=== PATIENT | male | born 1950 | race Caucasian/White ===

== ENCOUNTER 2016-05-22 17:21 | Emergency (ER) | payer OTHER ==
[2016-05-22 18:11] LABS: URINE APPEARANCE CLEAR; URINE BILIRUBIN NEGATIVE (NEGATIVE); URINE BLOOD 4+ (NEGATIVE); URINE COLOR YELLOW; URINE GLUCOSE (UA) NEGATIVE (NEGATIVE); URINE LEUKOCYTE ESTERASE NEGATIVE (NEGATIVE); URINE NITRITE NEGATIVE (NEGATIVE); URINE PROTEIN 1+ (NEGATIVE); URINE UROBILINOGEN NORMAL (0-1 mg/dl)
[2016-05-22 18:17] LABS: URINE BACTERIA 0; URINE EPITHELIAL CELLS FEW /hpf; URINE RBC 20-30 /hpf; URINE WBC 0-1 /hpf
[2016-05-22] MEDS ORDERED: HYDROMORPHONE HCL 1 MG/ML SYRINGE ONE (18:36)
[2016-05-22] MEDS ORDERED: KETOROLAC TROMETHAMINE 30 MG/ML 1 ML VIAL ONE (18:36)
[2016-05-22] MEDS ORDERED: ONDANSETRON 4 MG/2ML 2 ML VIAL ONE (18:36)
[2016-05-22 18:52] LABS: ABSOLUTE NEUTROPHIL COUNT 10.9 K/mm3 (1.8-7.7); BASO % 0.3 % (0.2-1.0); EOS % 0.2 % (0.9-2.9); HEMATOCRIT 47.4 % (32.0-52.0); IMM NEUT # 0.1 K/mm3 (0-0.2); IMM NEUT% 0.5 % (0-1); LYMPH % 7.5 % (15-45); MEAN CELL VOLUME 88.3 fl (80.0-94.0); MEAN CORPUSCULAR HEMOGLOBIN 29.8 pg (27.0-31.0); MEAN CORPUSCULAR HGB CONC 33.8 g/dl (33.0-37.0); MEAN PLATELET VOLUME 9.7 fl (7.4-10.4); MONO # 1.2 (0.0-0.8); MONO % 9.3 % (4-12); NEUT % 82.2 % (43-75); PLATELET COUNT 313 K/mm3 (130-400); RED CELL DISTRIBUTION WIDTH 13.1 % (11.5-14.5)
[2016-05-22 19:02] LABS: ALB/GLOB RATIO 1.3 (>1.0); CALCIUM 9.2 mg/dL (8.6-10.3)
--- NOTE | 2016-05-22 19:13 | CT ---
CT ABDOMEN AND PELVIS WITHOUT CONTRAST HISTORY: Left-sided flank pain. TECHNIQUE: No intravenous contrast administered; contiguous axial images were acquired from the lung bases to the ischial tuberosities. Oral contrast was not administered. COMPARISON:None. FINDINGS: LUNG BASES: Minor respiratory motion artifact. Minor atelectatic change without airspace consolidation or pleural effusion. LIVER: No focal mass effect. SPLEEN: No focal mass effect. STOMACH: Small to moderate hiatal hernia. PANCREAS: No focal mass effect. ADRENAL GLANDS: No mass effect. KIDNEYS: Nonobstructive calculi on the right up to 3 mm in size, up to 4 nonobstructive calculi in the left of the 4 mm in size. Asymmetric left-sided perirenal stranding and fluid with moderate collecting system and ureteral dilatation. A distal ureteral calculus on the left measures 2 mm in size right calculus along the left ureterovesicular junction, perhaps within the bladder lumen measures 3 mm in size. GALLBLADDER: Present. BOWEL: Moderate fecal loading. Limited assessment of the distal colon due to decompression. No abnormal small bowel dilatation. Findings of colonic diverticulosis without features of diverticulitis. APPENDIX: Normal gas-filled appendix. PELVIC ORGANS: No gross mass effect. INGUINAL REGIONS: Fatty inguinal hernia formation bilaterally. FREE FLUID: No gross free fluid identified. ABDOMINOPELVIC LYMPH NODES: No abnormally enlarged lymph nodes identified. ABDOMINAL AORTA: Minor atherosclerotic calcification without aneurysmal dilatation. OSSEOUS STRUCTURES: Dextroconvex curvature of the thoracolumbar junction with evidence of multilevel thoracolumbar disc degeneration, no grossly destructive lesions. IMPRESSION: 1. 3 mm calculus seen at the left ureterovesicular junction versus the bladder lumen. Additional 2 mm obstructive distal left ureteral calculus. Moderate residual bilateral renal calculus burden as above. 2. Hiatal hernia. 3. Fatty inguinal hernias bilaterally. 4. Colonic diverticulosis without diverticulitis. 5. Thoracolumbar spondylosis. Results were electronically transmitted to the electronic medical record at 05/22/2016 at 1909 hours.
== END 2016-05-22 17:37 | disposition home or self-care (01) ==
LOC: ED 17:21
DX: N20.9 Urinary calculus, unspecified (principal); I10 Essential (primary) hypertension
CPT/HCPCS: 83690; 85025; 80053; 81001; 74176; 96375 ×2; 99283 ×2; 96374; J1170; J1885; J2405